=== PATIENT | male | born 1955 | race Caucasian/White ===

== ENCOUNTER → 2016-08-17 | Outpatient (CLI) | payer OTHER ==
--- NOTE | 2016-08-17 09:17 | DX ---
Lumbar Spine 2 views History: Low back pain radiating to left leg. Comparison: None available. Findings: Mild dextroscoliosis of the thoracolumbar spine measures 12 degrees from the superior endpl ate of L1 through the inferior endplate of L3. There is mild right lateral translation of L3 on L4. A P alignment is normal. Vertebral body heights are preserved. No fracture is identified. There is mode rate vertebral spondylosis at L3-L4 and L5-S1 with mild vertebral spondylosis throughout the remainde r of the lumbar spine. Moderate facet hypertrophy is present from L4 through S1. Impression: Mild dextroscoliosis of the thoracolumbar spine with moderate degenerative change at L3-L 4 and L5-S1.
== END ==
LOC: FIMAGING 08:05
PROVIDERS: ATTEND Orthopaedic Surgery Orthopaedic Surgery of the Spine
DX: M51.16 Intervertebral disc disorders with radiculopathy, lumbar region (principal)